=== PATIENT | male | born 1975 | race African-American/Black ===

== ENCOUNTER 2016-12-19 18:45 | Emergency (ER) | payer OTHER ==
[~2016-12-19] VITALS: Ht 177.8 cm; Wt 140.0 kg
[~2016-12-19 18:45] MED LIST: CITA40 PO; CYCL-36 PO; DICY1TAB26 PO; ED B10TA OR; HYDR-3533 PO; MELO15; NAPR500 PO; PRAZ1 PO; QUET1TAB67 PO; TEMA15CA PO; TRAM50 PO; VALI10TA PO; VITATAB25 PO
[2016-12-19 18:48] VITALS: BP 123/70; PULSE 75; RESP 19; TEMP 98; O2SAT 98
[2016-12-19] MEDS ORDERED: MORPHINE SULFATE 8 MG/ML INJ IM ONE (19:00)
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
[2016-12-19] MEDS ORDERED: DIAZ10TA PO (19:14)
[2016-12-19] MEDS ORDERED: TRAM50TA PO (19:14)
[2016-12-19] MEDS ORDERED: MOBI15TA PO (19:14)
[2016-12-19] MEDS ORDERED: ACET325T PO (19:14)
[2016-12-19] MEDS ORDERED: PROM25TA5 PO (19:15)
[2016-12-19] MEDS ORDERED: QUET1TAB11 PO (19:15)
[2016-12-19] MEDS ORDERED: GABA600T PO (19:15)
--- NOTE | 2016-12-19 19:58 | RADRPT ---
EXAM DATE/TIME: 12/19/2016 19:45 [facility] COMPARISON: No previous studies available for comparison. INDICATIONS : Lower back pain. MEDICAL HISTORY : None. SURGICAL HISTORY : None. ENCOUNTER: Initial ACUITY: 1 day PAIN SCORE: 8/10 LOCATION: Bilateral lower back. FINDINGS: Lumbar spine alignment is normal. Vertebral bodies have normal height. There is mild disc space narrowing at L3/L4 and L4/L5. CONCLUSION: Mild degenerative changes at L3/L4 and L4/L5. No fracture or subluxation of the lumbar spine. Ralph Hemphill MD on December 19, 2016 at 19:55 Board Certified Radiologist. This report was verified electronically.
--- NOTE | 2016-12-19 21:40 | RADRPT ---
EXAM DATE/TIME: 12/19/2016 20:47 [facility] COMPARISON: SPINE LUMBAR LTD (AP & LAT), December 19, 2016, 19:45. INDICATIONS : Pain. Lower back and right leg pain MEDICAL HISTORY : None. SURGICAL HISTORY : None. ENCOUNTER: Initial ACUITY: 1 day PAIN SCORE: 8/10 LOCATION: lumbar TECHNIQUE: Multiplanar multisequence MRI of the lumbar spine was performed without contrast. FINDINGS: The most caudal appearing lumbar vertebra is numbered as L5. VERTEBRAE: Homogeneous signal. Normal alignment. CONUS: Normal level and configuration. T12-L1: Normal. L1-L2: Normal. L2-L3: Normal. L3-L4: The disc is desiccated and has mild loss of height. There is a very mainly small, broad but especiall y right paracentral/foraminal disc protrusion there is mild foraminal encroachment, mainly on the rig ht. No spinal stenosis. L4-L5: The disc is slightly desiccated and has mild loss of height. There is bulging of the disc annulus and minimal bilateral facet osteoarthritis. No significant foraminal or spinal stenosis. L5-S1: Normal. Small cyst incidentally seen of the left kidney. CONCLUSION: Mild degenerative changes at L3/L4 and L4/L5 as above. Associated mild foraminal stenosis at L3/L4, r ight more so than left. Ralph Hemphill MD on December 19, 2016 at 21:33 Board Certified Radiologist. This report was verified electronically.
[2016-12-19] MEDS ORDERED: CYCL1TAB29 PO (22:16)
[2016-12-19] MEDS ORDERED: PRED20 PO (22:16)
== END 2016-12-19 22:43 | disposition home or self-care (01) ==
LOC: NEPA 18:45
DX: M54.41 Lumbago with sciatica, right side (principal)
CPT/HCPCS: 72100; 72148; 96372; 99284; J2270

== ENCOUNTER 2017-11-27 14:30 | Emergency (ER) | payer OTHER ==
[~2017-11-27] VITALS: Ht 175.3 cm; Wt 129.0 kg
[~2017-11-27 14:30] MED LIST changes: +ACET325T PO; -CITA40 PO; -CYCL-36 PO; +CYCL10TA PO; +DIAZ10TA PO; -DICY1TAB26 PO; -ED B10TA OR; +GABA600T PO; -HYDR-3533 PO; -MELO15; +MOBI15TA PO; -NAPR500 PO; -PRAZ1 PO; +PRED20 PO; +PROM25TA5 PO; -QUET1TAB67 PO; +QUET400T PO; -TEMA15CA PO; -TRAM50 PO; +TRAM50TA PO; -VALI10TA PO; -VITATAB25 PO
[2017-11-27 14:31] VITALS: BP 172/110; PULSE 85; RESP 18; TEMP 98.6; O2SAT 97
[2017-11-27] MEDS ORDERED: TYLETAB34 PO (16:10)
[2017-11-27] MEDS ORDERED: KETOROLAC TROMETHAMINE 60 MG/2 ML (IM) VIAL IM ONE (16:15)
[2017-11-27] MEDS ORDERED: ORPHENADRINE INJ 60 MG/2 ML AMP IM ONE (16:15)
[2017-11-27] MEDS ORDERED: ROBA750T PO (16:49)
[2017-11-27] MEDS ORDERED: IBUP1TAB7 PO (16:49)
--- NOTE | 2017-11-27 16:50 | PD ---
HPI Chief Complaint: Musculoskeletal Complaint Time Seen by Provider: 16:00 Travel History International Travel<30 days: No Contact w/Intl Traveler<30days: No Traveled to known affect area: No History of Present Illness HPI This is a 42-year-old male here with low back pain. Denies injury trauma. Reports history of chronic low back pain. Patient reports the pain is usually related to Tylenol 3 but over the last couple days pain has not improved. He denies fever, chills, saddle anesthesia, incontinence, paresthesia or weakness of the extremities. Pain is worse with movement and slightly relieved with rest. Severity is moderate. PFSH Past Medical History Arthritis: Yes Anxiety: Yes Diminished Hearing: Yes (L ear diminished hearing from war) Gastrointestinal Disorders: Yes (rectal bleeding, polyps, hemorrhoids) Immunizations Current: Yes Past Surgical History Genitourinary Surgery: Yes (VASECTOMYx2) Family History Family Hypercholesterolemia: Yes Social History Alcohol Use: Yes (occas) Tobacco Use: No Substance Use: No Allergies-Medications (Allergen,Severity, Reaction): Coded Allergies: shellfish derived (Unverified Allergy, Severe, 06/12/17) iodine (Unverified Allergy, Unknown, 06/12/17) potassium iodide (Unverified Allergy, Unknown, 06/12/17) povidone-iodine (Unverified Allergy, Unknown, 06/12/17) sodium iodide (Unverified Allergy, Unknown, 06/12/17) sodium iodide (Unverified Allergy, Unknown, 06/12/17) Reported Meds & Prescriptions Reported Meds & Active Scripts Active Flexeril (Cyclobenzaprine HCl) 10 Mg Tab 10 Mg PO TID Prednisone 20 Mg Tab 60 Mg PO DAILY 5 Days Reported Tylenol-Codeine #3 (Acetaminophen-Codeine) 300-30 mg Tab 1-2 Tab PO Q6H PRN Phenergan (Promethazine HCl) 25 Mg Tab 25 Mg PO Q4HR PRN Quetiapine (Quetiapine Fumarate) 400 Mg Tab 800 Mg PO HS Gabapentin 600 Mg Tab 600 Mg PO HS Mobic (Meloxicam) 15 Mg Tab 15 Mg PO DAILY Acetaminophen 325 Mg Tab 650 Mg PO Q6HR PRN Diazepam 10 Mg Tab 10 Mg PO HS PRN Tramadol (Tramadol HCl) 50 Mg Tab 100 Mg PO Q6H PRN Review of Systems Except as stated in HPI: all other systems reviewed are Neg General / Constitutional: No: Fever Physical Exam Narrative GENERAL: Alert and well-appearing 42-year-old male SKIN: Warm and dry. HEAD: Normocephalic. EYES: No injection or drainage. NECK: Supple CARDIOVASCULAR: Regular rate and rhythm RESPIRATORY: Breath sounds equal bilaterally. No accessory muscle use. GASTROINTESTINAL: Abdomen soft, non-tender, nondistended. MUSCULOSKELETAL: No cyanosis, or edema. Normal strength and sensation in lower extremities. 2+ DTRs. Patient is able to flex and extend the great toe. Ambulatory without difficulty BACK: Generalized tenderness to the lumbar region primarily over the paraspinous musculature. No bony lumbar spine tenderness. Without obvious deformity. No CVA tenderness. Data Data Last Documented VS Vital Signs Date Time Temp Pulse Resp B/P (MAP) Pulse Ox O2 Delivery O2 Flow Rate FiO2 11/27/17 14:31 98.6 85 18 172/110 (130) 97 Room Air Orders Orders Ketorolac Inj (Toradol Inj) (11/27/17 16:15) Orphenadrine Inj (Norflex Inj) (11/27/17 16:15) MDM Medical Decision Making Medical Screen Exam Complete: Yes Emergency Medical Condition: Yes Differential Diagnosis Lumbar strain, herniated disc, sciatica Narrative Course This is a 42-year-old male here with acute on chronic low back pain. Pain is usually managed with Tylenol 3. Denies injury or trauma. He has normal neurologic exam. Patient was given a shot of Toradol and Norflex. Repeat blood pressure 174/92. He was instructed to follow-up with his primary doctor regarding his hypertension. He reports symptom improvement and is requesting discharge. Diagnosis Primary Impression: Lumbar strain Qualified Codes: S39.012A - Strain of muscle, fascia and tendon of lower back , initial encounter Referrals: Primary Care Physician Additional Instructions: Medications as prescribed. Muscle relaxers as needed for spasm. Ice and/or heat for comfort. Scripts Methocarbamol (Robaxin) 750 Mg Tab 750 MG PO QID for Muscle Spasm, #12 TAB 0 Refills Prov: Prema Reagan 11/27/17 Ibuprofen (Ibuprofen) 800 Mg Tab 800 MG PO Q6HR Y for PAIN, #40 TAB 0 Refills Prov: Prema Reagan 11/27/17 Disposition: 01 DISCHARGE HOME Condition: Stable Prema Reagan Nov 27, 2017 16:50
== END 2017-11-27 17:06 | disposition home or self-care (01) ==
LOC: NEPK 14:30
DX: S39.012A Strain of muscle, fascia and tendon of lower back, initial encounter (principal); G89.29 Other chronic pain; X58.XXXA Exposure to other specified factors, initial encounter
CPT/HCPCS: 96372; 99284; J1885; J2360